=== PATIENT | female | born 1995 | race African-American/Black ===

== ENCOUNTER 2018-02-15 12:08 | Emergency (ER) | payer SELFPAY ==
--- NOTE | 2018-02-15 13:28 | ER Document Report ---
ED Respiratory Problem - General Chief Complaint: Cold Symptoms Stated Complaint: HEAD CONGESTION Time Seen by Provider: 02/15/18 12:50 Mode of Arrival: Ambulatory Information source: Patient, Relative Notes: Patient is a 22-year-old female comes emergency room states that she is been sick since Wednesday. Patient is complaining of body aches and pains all over with a headache she also has had vomiting, stuffy nose, congested nose, denies fever. Also complains of a sore throat. Patient is a coming by her mother who states that she believes is just the flu. Denies any other symptoms or complaints. TRAVEL OUTSIDE OF THE [place] IN LAST 30 DAYS: No - HPI Patient complains to provider of: Cough Onset: Other - 4 days Duration: Continuous, Worse/persistent Initiating Event: URI Quality of pain: Achy Severity: Moderate Pain Level: 3 Short of Breath: Mild Chest pain/discomfort: Constant Sputum amount: None Associated symptoms: Anxiety, Chills, Congestion, Cough, Earache, Facial pain, Headache, PND, Runny nose, Sinus pain/pressure, Sore Throat, Wheezing. denies: Fever, Heart racing Similar symptoms previously: No Recently seen / treated by doctor: No - Related Data Allergies/Adverse Reactions: No Known Allergies Allergy (Verified 02/15/18 12:09) Past Medical History - General Information source: Patient - Social History Smoking Status: Never Smoker Cigarette use (# per day): No Chew tobacco use (# tins/day): No Smoking Education Provided: No Frequency of alcohol use: None Drug Abuse: None Family History: Reviewed & Not Pertinent Patient has suicidal ideation: No Patient has homicidal ideation: No Renal/ Medical History: Denies: Hx Peritoneal Dialysis Review of Systems - Review of Systems Constitutional: Fever, Weakness EENT: Ear pain, Nose congestion, Nose discharge, Sinus pressure, Sinus discharge , Throat pain Cardiovascular: No symptoms reported Respiratory: See HPI, Cough, Wheezing Gastrointestinal: No symptoms reported Genitourinary: No symptoms reported Female Genitourinary: No symptoms reported Musculoskeletal: No symptoms reported Skin: No symptoms reported Hematologic/Lymphatic: No symptoms reported Neurological/Psychological: No symptoms reported -: Yes All other systems reviewed and negative Physical Exam - Vital signs Vitals: Temp Pulse Resp BP Pulse Ox 98.6 F 77 18 114/71 99 02/15/18 12:19 02/15/18 12:19 02/15/18 12:19 02/15/18 12:19 02/15/18 12:19 Interpretation: Normal - Notes Notes: PHYSICAL EXAMINATION: GENERAL: Patient is a well-nourished well-developed 22-year-old female who is audibly congested and appears uncomfortable. She is accompanied by her mother and her daughter HEAD: Atraumatic, normocephalic. EYES: Pupils equal round and reactive to light, extraocular movements intact, conjunctiva are normal. ENT: Examination head and upper airway showed nasal mucosa to be very erythematous and edematous with some rhinorrhea. Patient displays some mild bilateral maxillary sinus tenderness to palpation. Bilateral TMs were bulging external canals are clear no fluid levels noted. Posterior pharynx shows moderate amount of erythema with no exudate bilateral tonsillar enlargement right tonsil appears bigger than the left and there is some white pustule on the superior portion of the tonsil. Patient also has a smell of strep. Uvula is midline with erythema no exudate and no encroachment upon it by the tonsils. Airway is patent. NECK: Normal range of motion, supple with bilateral anterior cervical lymphadenopathy to palpation LUNGS auscultation visual huggins show she has bilateral breath sounds breath sounds are increased throughout with only faint end expiratory wheeze. No rhonchi or rales heard. HEART: Regular rate and rhythm without murmurs ABDOMEN: Soft, nontender, nondistended abdomen. No guarding, no rebound. No masses appreciated. Female : deferred Musculoskeletal: Normal range of motion, no pitting or edema. No cyanosis. NEUROLOGICAL: Normal speech, normal gait. Normal sensory, motor exams PSYCH: Normal mood, normal affect. SKIN: Warm, Dry, normal turgor, no rashes or lesions noted. Course - Vital Signs Vital signs: Temp Pulse Resp BP Pulse Ox 98.6 F 77 18 114/71 99 02/15/18 12:19 02/15/18 12:19 02/15/18 12:19 02/15/18 12:19 02/15/18 12:19 Discharge - Discharge Clinical Impression: Wheeze Sinusitis Qualifiers: Sinusitis location: unspecified location Chronicity: acute Recurrence: non- recurrent Qualified Code(s): J01.90 - Acute sinusitis, unspecified Condition: Stable Disposition: HOME, SELF-CARE Instructions: Sinusitis ([facility]) Additional Instructions: Your strep was negative however there is a chance that it will turn positive over the course the next 5-6 days. That means that if we get notification that your culture grew out strep we will call you and put you on an antibiotic. Currently you do not need an antibiotic. With your tonsils slightly enlarged and the wheeze in your lungs and put you on a steroid taper. I am also put you on an antihistamine decongestant to dry up the drainage you have going into the from her nose to your chest. Once this dries up we should build to stop the vomiting and this should also help your congestion. We also have you use nasal saline spray the nose 3-4 times a day keep it moist and secretions thin. Should you spike a fever or your symptoms become worse come back to ER Prescriptions: Prednisone 10 mg PO ASDIR PRN 6 Days #1 tab.ds.pk PRN Reason: Pseudoephedrine HCl [Sudafed 12 Hour] 120 mg PO BID #20 tablet.er Forms: Return to Work Referrals: [facility] [NO LOCAL MD] - Follow up as needed
[2018-02-15 14:02] VITALS: BP 111/88
== END 2018-02-15 14:07 | disposition home or self-care (01) ==
LOC: ER 12:08
DX: J01.90 Acute sinusitis, unspecified (principal); R06.2 Wheezing; M79.10 Myalgia, unspecified site; R11.10 Vomiting, unspecified; R05 Cough; R53.1 Weakness
CPT/HCPCS: 87070; 87880; 99283

== ENCOUNTER 2018-11-25 14:30 | Emergency (ER) | payer SELFPAY ==
[2018-11-25] MEDS ORDERED: IPRATROPIUM/ALBUTEROL 0.5-2.5 MG/3 ML AMPUL NEB ONE (14:56)
--- NOTE | 2018-11-25 15:10 | ER Document Report ---
ED General - General Stated Complaint: WEAKNESS Time Seen by Provider: 11/25/18 14:49 TRAVEL OUTSIDE OF THE [place] IN LAST 30 DAYS: No - HPI Notes: Patient is a 23-year-old female with no chronic medical conditions that presents to the emergency department for chief complaint of shortness of breath and sinus congestion. Patient states that 3 days ago she started to have increased sinus congestion. She states generalized malaise and body aches. She does report intermittent mild dull achy headaches which are diffuse. Currently she denies any headache or body aches. She denies any known fever at home. She states she has tried qroh-obc-monowss nasal decongestants which provide minimal relief. Today patient states that she started to feel short of breath and tight. Her mother told her that she had history of bronchitis but she has never had asthma before. She denies tobacco use or secondhand smoke exposure. She denies any change in eating, nausea/vomiting, diarrhea. Past Medical History: Negative Past Surgical History: Negative Social History: denies drug, alcohol, and tobacco abuse Family History: Reviewed and noncontributory for presenting illness Allergies: Reviewed, see documented allergy list. REVIEW OF SYSTEMS: CONSTITUTIONAL : No fever No chills No diaphoresis No recent illness EENT: No vision changes congestion No sore throat CARDIOVASCULAR: No chest pain No palpitations RESPIRATORY: shortness of breath No cough difficulty breathing GASTROINTESTINAL: No abdominal pain No nausea No vomiting No diarrhea GENITOURINARY: No dysuria No hematuria No difficulty urinating MUSCULOSKELETAL: No back pain diffuse myalgias SKIN: No rashes No lesions LYMPHATIC: No swollen, enlarged glands. NEUROLOGICAL: No lightheadedness headache No weakness No paresthesias PSYCHIATRIC: No anxiety No depression PHYSICAL EXAMINATION: Vital signs reviewed, nursing noted reviewed. GENERAL: Well-appearing, well-nourished and in no acute distress. HEAD: Atraumatic, normocephalic. EYES: Eyes appear normal, extraocular movements intact, sclera anicteric, conjunctiva are normal. ENT: Bilateral nasal mucosal edema and rhinorrhea, oropharynx clear without exudates. Moist mucous membranes. NECK: Normal range of motion, supple without lymphadenopathy LUNGS: Breath sounds wheezy to auscultation bilaterally and equal. no tachypnea or accessory muscle use HEART:mild tachycardia, regular rhythm without murmurs ABDOMEN: Soft, nontender, normoactive bowel sounds. No rebound, guarding, or rigidity. No masses appreciated. EXTREMITIES: Nontender, good range of motion, no pitting or edema. NEUROLOGICAL: No focal neurological deficits. Moves all extremities spontaneously Motor and sensory grossly intact on exam. PSYCH: Normal mood, normal affect. SKIN: Warm, Dry, normal turgor, no rashes or lesions noted on exposed skin - Related Data Allergies/Adverse Reactions: No Known Allergies Allergy (Verified 02/15/18 12:09) Past Medical History - Social History Smoking Status: Never Smoker Family History: Reviewed & Not Pertinent Renal/ Medical History: Denies: Hx Peritoneal Dialysis Physical Exam - Vital signs Vitals: Pulse Ox 100 11/25/18 14:38 Course - Re-evaluation Re-evalutation: 11/25/18 16:52 Vitals reviewed. Nursing notes reviewed. Patient had improvement of her shortness of breath after receiving an albuterol treatment by EMS. She was given a DuoNeb in the emergency room. Her wheezing has continued to improve. Patient's chest x-ray shows no underlying pneumonia. She has been oxygenating at 100% on room air and is in no acute respiratory distress. Patient does have sinus congestion to suggest viral URI. Patient has had some dramatic improvement with albuterol and will be given an albuterol MDI for further symptomatic management at home. She was counseled on return precautions and follow-up. She is stable for discharge. Chest X-Ray 11/25/18 14:56 IMPRESSION: NO ACUTE RADIOGRAPHIC FINDING IN THE CHEST. - Vital Signs Vital signs: Temp Pulse Resp BP Pulse Ox 97.8 F 109/75 100 11/25/18 15:46 11/25/18 16:01 11/25/18 16:01 Discharge - Discharge Clinical Impression: Bronchitis Condition: Stable Disposition: HOME, SELF-CARE Instructions: Bronchitis With Bronchospasm (Wheezing) ([facility]) Additional Instructions: Please return to the emergency department if you have any worsening, or concern of your symptoms. Please return to the emergency department if you develop chest pain, difficulty breathing, severe abdominal pain, or ongoing vomiting. Please follow-up with your primary care physician in 2-3 days and any other r ecommended physicians. If prescribed, take all medications as directed. If you have any questions or concerns do not hesitate to return the emergency department for evaluation. Use the albuterol inhaler 2 puffs with the spacer every 4 hours as needed for cough and shortness of breath. If you are needing to use it more often than every 4 hours because you are feeling very short of breath you should return to the emergency room for reevaluation Prescriptions: Mometasone Furoate [Nasonex] 2 spray NS Q12 10 Days #1 spray.pump Albuterol Sulfate [Proair HFA Inhalation Aerosol 8.5 gm MDI] 2 puff IH Q4H PRN #1 mdi PRN Reason: Inhaler, Assist Devices [Space Chamber Plus] 1 each MC Q4 #1 spacer Referrals: [facility] [Provider Group] - Follow up in 3-5 days
--- NOTE | 2018-11-25 16:30 | RADIOLOGY REPORT (SQ) ---
EXAM DESCRIPTION: CHEST 2 VIEWS COMPLETED DATE/TIME: 11/25/2018 4:22 pm REASON FOR STUDY: shortness of breath COMPARISON: 02/24/2015 EXAM PARAMETERS: NUMBER OF VIEWS: two views TECHNIQUE: Digital Frontal and Lateral radiographic views of the chest acquired. RADIATION DOSE: NA LIMITATIONS: none FINDINGS: LUNGS AND PLEURA: No opacities, masses or pneumothorax. No pleural effusion. MEDIASTINUM AND HILAR STRUCTURES: No masses or contour abnormalities. HEART AND VASCULAR STRUCTURES: Heart normal size. No evidence for failure. BONES: No acute findings. HARDWARE: None in the chest. OTHER: No other significant finding. IMPRESSION: NO ACUTE RADIOGRAPHIC FINDING IN THE CHEST. TECHNICAL DOCUMENTATION: JOB ID: [id number] [employer]- All Rights Reserved Reading location - IP/workstation name: [email or web address]
[2018-11-25 17:35] VITALS: BP 107/70
== END 2018-11-25 17:33 | disposition home or self-care (01) ==
LOC: ER 14:30
DX: J40 Bronchitis, not specified as acute or chronic (principal); R53.1 Weakness
CPT/HCPCS: 94640; 99285; 71046; J7620

== ENCOUNTER 2018-11-28 06:10 | Emergency (ER) | payer SELFPAY ==
[2018-11-28 06:16] VITALS: BP 119/81
[2018-11-28] MEDS ORDERED: ACETAMINOPHEN 325 MG TABLET PO ONE (08:24)
--- NOTE | 2018-11-28 08:28 | ER Document Report ---
HPI - HPI Patient complains to provider of: Sore throat Time Seen by Provider: 11/28/18 08:14 Pain Level: 4 Context: Patient is otherwise healthy 23-year-old female presents to the emergency department for generalized cough, congestion, sore throat for the last 3 days. Patient's denying any fevers, chest pain, respiratory distress, nausea, vomiting, abdominal pain, dysuria. Patient states she did go to an urgent care on Wednesday who told her she had an upper respiratory infection. Patient voices that they did not do a rapid strep test and she continues with a generalized sore throat. Patient was taken no jngy-tbg-mjwvkte medications for this illness. - EENT EENT: REPORTS: Sore Throat - RESPIRATORY Respiratory: REPORTS: Coughing - REPRODUCTIVE Reproductive: DENIES: : Past Medical History - General Information source: Patient - Social History Smoking Status: Never Smoker Chew tobacco use (# tins/day): No Frequency of alcohol use: None Drug Abuse: None Family History: Reviewed & Not Pertinent Patient has suicidal ideation: No Patient has homicidal ideation: No Renal/ Medical History: Denies: Hx Peritoneal Dialysis Vertical Provider Document - CONSTITUTIONAL Agree With Documented VS: Yes Notes: GENERAL: Alert, interacts well. No acute distress. HEAD: Normocephalic, atraumatic. EYES: Pupils equal, round, and reactive to light. Extraocular movements intact. ENT: Oral mucosa moist, tongue midline. Nares patent, TM's intact, Nonerythematous, nonbulging bilaterally. Pharynx minorly erythematous no palatal petechiae or exudate noted. Tonsils +2 bilaterally and symmetrical. NECK: Full range of motion. Supple. Trachea midline. No lymphadenopathy appreciated LUNGS: Clear to auscultation bilaterally, no wheezes, rales, or rhonchi. No respiratory distress. HEART: Regular rate and rhythm. No murmur ABDOMEN: Soft, non-tender. Non-distended. Bowel sounds present in all 4 quadrants. EXTREMITIES: Moves all 4 extremities spontaneously. No edema, normal radial and dorsalis pedis pulses bilaterally. No cyanosis. BACK: no cervical, thoracic, lumbar midline tenderness. No saddle anesthesia, normal distal neurovascular exam. NEUROLOGICAL: Alert and oriented x3. Normal speech. cranial nerves II through XII grossly intact PSYCH: Normal affect, normal mood. SKIN: Warm, dry, normal turgor. No rashes or lesions noted. - INFECTION CONTROL TRAVEL OUTSIDE OF THE [place] IN LAST 30 DAYS: No Course - Re-evaluation Re-evalutation: 11/28/18 08:27 Laboratory 11/28/18 07:45 Group A Strep Rapid NEGATIVE Patient's rapid strep test negative in the emergency department. Patient appears well-hydrated, nontoxic. Vital signs within normal limits. Discussed upper respiratory infection diagnosis with patient. At this time will discharge with return precautions and follow-up recommendati ons. Verbal discharge instructions given a the bedside and opportunity for questions given. Medication warnings reviewed. Patient is in agreement with this plan and has verbalized understanding of return precautions and the need for primary care follow-up in the next 24-72 hours. This medical record was dictated with voice recognizing software. There may be grammatical, syntax errors that are unintended. - Vital Signs Vital signs: Temp Pulse Resp BP Pulse Ox 97.4 F 84 16 119/81 99 11/28/18 06:14 11/28/18 06:14 11/28/18 06:14 11/28/18 06:14 11/28/18 06:14 Discharge - Discharge Clinical Impression: Upper respiratory infection Qualifiers: URI type: unspecified viral URI Qualified Code(s): J06.9 - Acute upper respiratory infection, unspecified Condition: Stable Disposition: HOME, SELF-CARE Instructions: Viral Syndrome ([facility]), Upper Respiratory Illness ([facility]) Additional Instructions: As we discussed you have been seen and treated in the emergency department for an upper respiratory infection. These are typically caused by viruses and do not respond to antibiotics. Please make sure you are staying well-hydrated and taking [id number] Tylenol Motrin for generalized body aches or fevers. Please buy ftil-yds-cgaglpe cold medication for symptomatic relief. Please follow-up with your primary care provider in the next 24 to 48 hours. Return to the emergency room for any further concerns. Forms: Return to Work
== END 2018-11-28 08:41 | disposition home or self-care (01) ==
LOC: ER 06:10
DX: J06.9 Acute upper respiratory infection, unspecified (principal); J02.9 Acute pharyngitis, unspecified; R05 Cough; R09.81 Nasal congestion
CPT/HCPCS: 87070; 87077; 87880; 99283

== ENCOUNTER 2019-06-01 13:10 | Emergency (ER) | payer SELFPAY ==
[2019-06-01 13:15] VITALS: BP 138/81
--- NOTE | 2019-06-01 13:24 | ER Document Report ---
HPI - HPI Time Seen by Provider: 06/01/19 13:18 Notes: CHIEF COMPLAINT: Cough for 4 days HPI: 23-year-old female who does not smoke presenting to the emergency department for evaluation of cough for 4 days with chest pain with coughing. Mild shortness of breath. Started also with sore throat but that is improved. No fever. ROS: See HPI - all other systems were reviewed and are otherwise negative Constitutional: no fever Eyes: no drainage, no blurred vision ENT: no runny nose, no sore throat currently Cardiovascular: Positive chest pain with cough Resp: + SOB, + cough GI: no vomiting, no diarrhea, no abdominal pain : no dysuria Integumentary: no rash Allergy: no hives Musculoskeletal: no extremity pain or swelling Neurological: no numbness/tingling, no weakness MEDICATIONS: I agree with the patient medications as charted by the RN. ALLERGIES: I agree with the allergies as charted by the RN. PAST MEDICAL HISTORY/PAST SURGICAL HISTORY: Reviewed and agree as charted by RN. SOCIAL HISTORY: Reviewed and agree as charted by RN. FAMILY HISTORY: No significant familial comorbid conditions directly related to patient complaint EXAM: Reviewed vital signs as charted by RN. CONSTITUTIONAL: Alert and oriented and responds appropriately to questions. Well-appearing; well-nourished, no acute distress HEAD: Normocephalic; atraumatic EYES: PERRL; Conjunctivae clear, sclerae non-icteric ENT: normal nose; positive clear rhinorrhea; moist mucous membranes; pharynx without lesions noted, no uvula edema or deviation, no tonsillar hypertrophy, phonation normal NECK: Supple without meningismus; non-tender; no cervical lymphadenopathy, no masses CARD: RRR; no murmurs, no clicks, no rubs, no gallops; symmetric distal pulses RESP: Normal chest excursion without splinting or tachypnea; breath sounds clear and equal bilaterally; no wheezes, no rhonchi, no rales, pulse oximetry 98% on room air not hypoxic. No chest pain on palpation over the chest wall ABD/GI: Normal bowel sounds; non-distended; soft, non-tender, no rebound, no guarding; no palpable organomegaly or masses. BACK: The back appears normal and is non-tender to palpation, there is no CVA tenderness EXT: Normal ROM in all joints; non-tender to palpation; no cyanosis, no effusions, no edema SKIN: Normal color for age and race; warm; dry; good turgor; no acute lesions noted NEURO: Moves all extremities equally; Motor and sensory function intact PSYCH: The patient's mood and manner are appropriate. Grooming and personal hygiene are appropriate. MDM: 23-year-old female with upper respiratory symptoms for 4 days will obtain chest x-ray to evaluate for infiltrate. Likely a viral etiology of chest x-ray negative will symptomatically treat follow-up PCP. Low suspicion for PE at this time PERC 0. - REPRODUCTIVE Reproductive: DENIES: : Past Medical History - Social History Smoking Status: Unknown if Ever Smoked Family History: Reviewed & Not Pertinent Renal/ Medical History: Denies: Hx Peritoneal Dialysis Vertical Provider Document - INFECTION CONTROL TRAVEL OUTSIDE OF THE [place] IN LAST 30 DAYS: No Course - Re-evaluation Re-evalutation: 06/01/19 13:52 Chest x-ray does not show evidence of infiltrate will treat symptomatically follow-up PCP - Vital Signs Vital signs: Temp Pulse Resp BP Pulse Ox 98.0 F 93 20 138/81 H 98 06/01/19 13:14 06/01/19 13:14 06/01/19 13:14 06/01/19 13:14 06/01/19 13:14 Discharge - Discharge Clinical Impression: Viral upper respiratory tract infection with cough Condition: Stable Disposition: HOME, SELF-CARE Additional Instructions: Chest x-ray did not show evidence of pneumonia, this is likely a viral etiology, medications as prescribed, follow-up primary care provider for reevaluation Prescriptions: Guaifenesin/Dextromethorphan [Mucinex Dm ER 600-30 mg Tablet] 1 each PO BID #20 tab.er.12h Albuterol Sulfate [Proair HFA Inhalation Aerosol 8.5 gm MDI] 2 puff IH Q4H PRN #1 mdi PRN Reason: Referrals: PANFILO ZEPEDA MD [ACTIVE STAFF] - Follow up as needed
--- NOTE | 2019-06-01 13:54 | RADIOLOGY REPORT (SQ) ---
EXAM DESCRIPTION: CHEST 2 VIEWS COMPLETED DATE/TIME: 06/01/2019 1:36 pm REASON FOR STUDY: cough COMPARISON: 11/25/2018 TECHNIQUE: Frontal and lateral radiographic views of the chest acquired. NUMBER OF VIEWS: Two view. LIMITATIONS: None. FINDINGS: LUNGS AND PLEURA: No opacities, masses or pneumothorax. No pleural effusion. MEDIASTINUM AND HILAR STRUCTURES: No masses or contour abnormalities. HEART AND VASCULAR STRUCTURES: Heart normal size. No evidence for failure. BONES: No acute findings. HARDWARE: None in the chest. OTHER: No other significant finding. IMPRESSION: NO SIGNIFICANT RADIOGRAPHIC FINDING IN THE CHEST. TECHNICAL DOCUMENTATION: JOB ID: [id number] 2010 [employer]- All Rights Reserved Reading location - IP/workstation name: [email or web address]
== END 2019-06-01 14:14 | disposition home or self-care (01) ==
LOC: ER 13:10
DX: J06.9 Acute upper respiratory infection, unspecified (principal); B97.89 Other viral agents as the cause of diseases classified elsewhere; R05 Cough; R07.9 Chest pain, unspecified; R06.02 Shortness of breath; J34.89 Other specified disorders of nose and nasal sinuses
CPT/HCPCS: 71046; 99283